=== PATIENT | female | born 1955 | race Caucasian/White ===

== ENCOUNTER 2017-05-09 00:14 | Emergency (ER) | payer BC, OTHER ==
[~2017-05-09] VITALS: Ht 172.7 cm; Wt 86.4 kg
[~2017-05-09 00:14] MED LIST: ASPI-621 PO; ATOR40TA78 PO; CLOP75TA PO; METO25TA91 PO; NITR0.4T SL
[2017-05-09 00:16] VITALS: BP 146/90
[2017-05-09] MEDS ORDERED: EZET10TA18 PO (00:36)
[2017-05-09] MEDS ORDERED: CARV3.12 PO (00:38)
== END 2017-05-09 01:50 | disposition home or self-care (01) ==
LOC: ED 01:30
DX: S06.0X0A Concussion without loss of consciousness, initial encounter (principal); S09.90XA Unspecified injury of head, initial encounter; I25.2 Old myocardial infarction; V00.321A Fall from snow-skis, initial encounter; Y93.23 Activity, snow (alpine) (downhill) skiing, snowboarding, sledding, tobogganing and snow tubing; Y92.89 Other specified places as the place of occurrence of the external cause; Y99.8 Other external cause status
CPT/HCPCS: 70450; 99284